=== PATIENT | male | born 2005 | race Hispanic/Latino ===

== ENCOUNTER 2025-03-07 21:02 | Emergency (ER) | payer SELFPAY ==
[2025-03-07] MEDS ORDERED: Boostrix 0.5 ML (Tdap) VIAL (>/=7 yrs of age) ONE (22:15)
[2025-03-07] MEDS ORDERED: Bacitracin 1 PK ONE (22:15)
[2025-03-07] MEDS ORDERED: Lidocaine 1% PF 5 ML VIAL ONE (22:15)
== END 2025-03-07 23:47 | disposition home or self-care (01) ==
LOC: ERS 21:02
DX: S61.215A Laceration without foreign body of left ring finger without damage to nail, initial encounter (principal); Z23 Encounter for immunization; W26.8XXA Contact with other sharp object(s), not elsewhere classified, initial encounter; Y93.89 Activity, other specified; Y92.69 Other specified industrial and construction area as the place of occurrence of the external cause
CPT/HCPCS: 12001; 90471; 90715